=== PATIENT | female | born 1975 | race Caucasian/White ===

== ENCOUNTER 2016-03-01 19:56 | Emergency (ER) | payer SELFPAY ==
[~2016-03-01 19:56] MED LIST: IBUP800T23 PO; MELA3TAB14
[2016-03-01 19:59] VITALS: BP 134/63; PULSE 95; RESP 14; TEMP 98; O2SAT 97
[2016-03-02] MEDS ORDERED: BACT800T5 PO (18:01)
[2016-03-02] MEDS ORDERED: IBUP-232 PO (18:01)
== END 2016-03-01 21:33 | disposition left against medical advice (07) ==
LOC: NED 19:56
DX: B99.9 Unspecified infectious disease (principal)
CPT/HCPCS: 99281

== ENCOUNTER 2016-03-02 17:09 | Emergency (ER) | payer SELFPAY ==
[~2016-03-02] VITALS: Ht 170.2 cm; Wt 75.0 kg
[2016-03-02 17:14] VITALS: BP 135/80; PULSE 128; RESP 20; TEMP 98; O2SAT 95
--- NOTE | 2016-03-02 17:17 | PD ---
HPI Chief Complaint: Skin Problem Time Seen by Provider: 17:17 Travel History International Travel<30 days: No Contact w/Intl Traveler<30days: No Traveled to known affect area: No History of Present Illness HPI 40-year-old female coming in with right hand cellulitis and abscess. Patient states she was opening her dog food can 4 days ago, she received a small cut in the third dorsal webspace, with subsequent erythema and swelling in the dorsal hand over the fourth and fifth metacarpal region. She does have a history of IV drug use in the past, but states that was not the cause of this problem. Patient has been clean for over a week. She had one relapse one week ago but prior to that she been clean for over a year. Patient takes no fever, chills, has increased pain swelling and decreased ability to make a fist in the right hand. There is been no drainage. Patient has no previous history of MRSA. She is allergic to Prozac but no other medication no allergies. Patient states her tetanus is up-to-date. PFSH Past Medical History Arthritis: No Asthma: No Autoimmune Disease: No Blood Disorders: No Anxiety: Yes Depression: No Heart Rhythm Problems: No Cancer: No Cardiovascular Problems: Yes (hx endocarditis) High Cholesterol: No Chemotherapy: No Chest Pain: No Congestive Heart Failure: No COPD: No Cerebrovascular Accident: No Diabetes: No Diminished Hearing: No Endocrine: No Gastrointestinal Disorders: Yes (hep c pos) GERD: No Glaucoma: No Genitourinary: Yes (HX UTI) Headaches: No Hepatitis: Yes (HEP -C-) Hiatal Hernia: No Hypertension: No Immune Disorder: No Kidney Stones: No Musculoskeletal: No Neurologic: Yes (epidural abcess) Psychiatric: Yes Reproductive: No Respiratory: No Migraines: No Myocardial Infarction: No Radiation Therapy: No Renal Failure: No Seizures: No Sleep Apnea: No Thyroid Disease: No Ulcer: No Tetanus Vaccination: < 5 Years ?: Not : 2 Para: 1 Miscarriage: 1 Past Surgical History Abdominal Surgery: Yes (spenic rupture with surg intervention age 13) AICD: No Arteriovenous Shunt: No Cardiac Surgery: No Ear Surgery: No Endocrine Surgery: No Eye Surgery: No Genitourinary Surgery: No Gynecologic Surgery: No Insulin Pump: No Joint Replacement: No Neurologic Surgery: No Oral Surgery: No Pacemaker: No Thoracic Surgery: No Other Surgery: Yes Social History Alcohol Use: No Tobacco Use: Yes Substance Use: Yes (iv dilaudid use) Allergies-Medications (Allergen,Severity, Reaction): Coded Allergies: Prozac (Verified Allergy, Mild, HIVES, 03/02/16) OTC RESOLVED Reported Meds & Prescriptions Reported Meds & Active Scripts Active No Active Prescriptions or Reported Medications Review of Systems Except as stated in HPI: all other systems reviewed are Neg General / Constitutional: No: Fever, Chills Eyes: No: Visual changes HENT: No: Headaches Cardiovascular: No: Chest Pain or Discomfort Respiratory: No: Shortness of Breath Gastrointestinal: No: Abdominal Pain Genitourinary: No: Dysuria Musculoskeletal: No: Pain Skin: Positive Other (see history present illness.), No Rash Neurologic: No: Weakness Psychiatric: No: Depression Endocrine: No: Polydipsia Hematologic/Lymphatic: No: Easy Bruising Physical Exam Narrative GENERAL: Patient appears in no acute distress. SKIN: Warm and dry. Normal color. Normal turgor. Patient does have a small superficial linear laceration to the fourth webspace, with obvious abscess with erythema, induration, and warmth covering the dorsal lateral portion of the right hand without obvious pointing. There is no lymphangitis or streaking. There is no spontaneous drainage. HEAD: Atraumatic. Normocephalic. EYES: Pupils equal and round. No scleral icterus. No injection or drainage. ENT: No nasal bleeding or discharge. Mucous membranes pink and moist. NECK: Trachea midline. No JVD. CARDIOVASCULAR: Regular rate and rhythm. RESPIRATORY: No accessory muscle use. Clear to auscultation. Breath sounds equal bilaterally. MUSCULOSKELETAL: Extremities without clubbing, cyanosis, or edema. No obvious deformities. Range of motion of the right hand is somewhat limited secondary to the pain and swelling from the above abscess. NEUROLOGICAL: Awake and alert. No obvious cranial nerve deficits. Motor grossly within normal limits. Five out of 5 muscle strength in the arms and legs. Normal speech. PSYCHIATRIC: Appropriate mood and affect; insight and judgment normal. Data Data Last Documented VS Vital Signs Date Time Temp Pulse Resp B/P Pulse Ox O2 Delivery O2 Flow Rate FiO2 03/02/16 17:26 129 16 120/76 97 Room Air 03/02/16 17:14 98.0 Orders Wound Culture And Gram Stain (03/02/16 17:30) Lidocai-Epi 1%-1:100,000 Inj (Xylocaine- (03/02/16 17:30) Clindamycin Inj (Cleocin Inj) (03/02/16 17:45) MDM Medical Decision Making Medical Screen Exam Complete: Yes Emergency Medical Condition: Yes Differential Diagnosis Cellulitis. MRSA. Abscess. Narrative Course Patient is medically stable at time of exam. Call was placed to Dr. Nicolas, the hand surgeon on-call the patient was discussed. Dr. Nicolas felt that I&D here in the emergency department was appropriate. I&D was performed here, and wound culture sent to the lab. Please see procedure note. Large bulky bandage is placed over the packing. Dressing is to remain in place until seen in follow-up. Patient is to return in 2 days for recheck and possible packing. Patient is given 600 mg clindamycin IM. Patient be discharged home on Bactrim DS twice a day 10 days. Patient also given ibuprofen 600 mg 4 times a day when necessary pain #40. Patient follow-up in 2 days for recheck or sooner if symptoms worsen as discussed. Procedures Procedure Narrative After the risks and benefits were discussed the following procedure was performed: INCISION AND DRAINAGE OF ABSCESS: The area was prepped and was sterilely draped. A subcutaneous wheal of 1 % Xylocaine with epinephrine with a total number 3 mL was used to anesthetize the area. The area was properly anesthetized. A number 11 scalpel was used to make a 1-cm incision across the area of the abscess. Cultures were obtained. The abscess was drained an irrigated with normal saline. Quarter inch iodoform packing was placed in the wound. Bulky Sterile dressing applied. Patient advised to have packing removed in two days. Diagnosis Primary Impression: Abscess of right hand excluding fingers and thumb Patient Instructions: Abscess Incision and Drainage (DC), General Instructions Additional Instructions: Large bulky bandage is placed over the packing. Dressing is to remain in place until seen in follow-up. Patient is to return in 2 days for recheck and possible packing. Patient is given 600 mg clindamycin IM. Patient be discharged home on Bactrim DS twice a day 10 days. Patient also given ibuprofen 600 mg 4 times a day when necessary pain #40. Patient follow-up in 2 days for recheck or sooner if symptoms worsen as discussed. Med/Other Pt SpecificInfo: Prescription(s) given Scripts No Active Prescriptions or Reported Meds Disposition: 01 DISCHARGE HOME Condition: Stable Hitesh Han Mar 02, 2016 17:17
[2016-03-02 17:26] VITALS: BP 120/76; PULSE 129; RESP 16; O2SAT 97
[2016-03-02] MEDS ORDERED: LIDOCAINE 1%/EPINEPHrine 1:100,000 SOLN 20 ML VIAL INFIL ONE (17:30)
[2016-03-02] MEDS ORDERED: CLINDAMYCIN PHOS 600 MG/4 ML VIAL IM ONE (17:45)
[2016-03-02] MEDS ORDERED: IBUPROFEN 800 MG TAB PO ONE (18:00)
[2016-03-02] MEDS ORDERED: IBUP-232 PO (18:01)
[2016-03-02] MEDS ORDERED: BACT800T5 PO (18:01)
== END 2016-03-02 18:30 | disposition home or self-care (01) ==
LOC: NEPC 17:09
DX: L02.511 Cutaneous abscess of right hand (principal); Z72.0 Tobacco use; Z86.79 Personal history of other diseases of the circulatory system; Z86.19 Personal history of other infectious and parasitic diseases; Z87.440 Personal history of urinary (tract) infections; Z86.69 Personal history of other diseases of the nervous system and sense organs; Z86.59 Personal history of other mental and behavioral disorders
CPT/HCPCS: 10061; 87070; 87205; 96372

== ENCOUNTER 2016-03-05 08:50 | Emergency (ER) | payer SELFPAY ==
[~2016-03-05] VITALS: Ht 170.2 cm; Wt 70.0 kg
[~2016-03-05 08:50] MED LIST changes: +BACT800T5 PO; +IBUP-232 PO; -IBUP800T23 PO; -MELA3TAB14
[2016-03-05 08:51] VITALS: BP 132/68; PULSE 82; RESP 18; TEMP 98.2; O2SAT 97
--- NOTE | 2016-03-05 10:04 | PD ---
HPI Chief Complaint: Wound/Suture/Staple Re-Check Time Seen by Provider: 10:00 Travel History International Travel<30 days: No Contact w/Intl Traveler<30days: No Traveled to known affect area: No History of Present Illness HPI Patient comes in for wound recheck on abscess on her right hand that was I&D here 2 days ago. Patient reports improvement of symptoms since. Patient denies any pain with this and reports increased range of motion of hand. Patient has been taking antibiotics as prescribed. Denies any fevers or other concerns. PFSH Past Medical History Arthritis: No Asthma: No Autoimmune Disease: No Blood Disorders: No Anxiety: Yes Depression: No Heart Rhythm Problems: No Cancer: No Cardiovascular Problems: Yes (hx endocarditis) High Cholesterol: No Chemotherapy: No Chest Pain: No Congestive Heart Failure: No COPD: No Cerebrovascular Accident: No Diabetes: No Diminished Hearing: No Endocrine: No Gastrointestinal Disorders: Yes (hep c pos) GERD: No Glaucoma: No Genitourinary: Yes (HX UTI) Headaches: No Hepatitis: Yes (HEP -C-) Hiatal Hernia: No Hypertension: No Immune Disorder: No Kidney Stones: No Musculoskeletal: No Neurologic: Yes (epidural abcess) Psychiatric: Yes Reproductive: No Respiratory: No Migraines: No Myocardial Infarction: No Radiation Therapy: No Renal Failure: No Seizures: No Sleep Apnea: No Thyroid Disease: No Ulcer: No : 2 Para: 1 Miscarriage: 1 Past Surgical History Abdominal Surgery: Yes (spLenic rupture with surg intervention age 13) AICD: No Arteriovenous Shunt: No Cardiac Surgery: No Ear Surgery: No Endocrine Surgery: No Eye Surgery: No Genitourinary Surgery: No Gynecologic Surgery: No Insulin Pump: No Joint Replacement: No Neurologic Surgery: No Oral Surgery: No Pacemaker: No Thoracic Surgery: No Other Surgery: Yes Social History Alcohol Use: No Tobacco Use: Yes (1 PPD) Substance Use: Yes (iv dilaudid use) Allergies-Medications (Allergen,Severity, Reaction): Coded Allergies: Prozac (Verified Allergy, Mild, HIVES, 03/02/16) OTC RESOLVED Reported Meds & Prescriptions Reported Meds & Active Scripts Active Ibuprofen 600 Mg Tab 600 Mg PO Q6H PRN Bactrim DS (Sulfamethoxazole-Trimethoprim) 800-160 Mg Tab 1 Tab PO BID Review of Systems Except as stated in HPI: all other systems reviewed are Neg Physical Exam Narrative GENERAL: Well-developed, well nourished, in no acute distress, and non-ill appearing. SKIN: Warm and dry. Well-healing abscess noted dorsal aspect of the right hand. Patient has full range of motion. No active drainage. There is no crepitus, is minimally tender to palpation, mild erythematous. HEAD: Atraumatic. Normocephalic. EYES: Pupils equal and round. EOMI. No scleral icterus. No injection or drainage. ENT: No nasal bleeding or discharge. Mucous membranes pink and moist. NECK: Trachea midline. Supple. No nuclear rigidity. RESPIRATORY: No accessory muscle use. No respiratory distress. MUSCULOSKELETAL: No obvious deformities. No clubbing. No cyanosis. No edema. Full range of motion. NEUROLOGICAL: Awake and alert. No obvious cranial nerve deficits. Motor grossly within normal limits. Normal speech. PSYCHIATRIC: Appropriate mood and affect; insight and judgment normal. Data Data Last Documented VS Vital Signs Date Time Temp Pulse Resp B/P Pulse Ox O2 Delivery O2 Flow Rate FiO2 03/05/16 08:51 98.2 82 18 132/68 97 Room Air Orders Wound Care (03/05/16 10:00) MDM Medical Decision Making Medical Screen Exam Complete: Yes Emergency Medical Condition: Yes Differential Diagnosis Wound recheck, abscess, worsening infection, other Narrative Course Patient in no obvious distress upon re-evaluation. Any questions/concerns in reference to patient diagnosis/condition discussed and clarified prior to patient's discharge. Reinforced sheer importance of close follow up with patient 's primary physician or primary care clinic. Instructed patient to return to ED immediately, if symptoms return/worsen. Pt showed understanding of above instructions. Further instructions and recommendations were detailed in discharge paperwork. Pt ambulated without difficulty out of ED at discharge. Diagnosis Primary Impression: Encounter for recheck of abscess following incision and drainage Patient Instructions: Abscess Follow-up (ED), Acute Wound Care (ED), General Instructions Additional Instructions: Follow-up with your primary care physician or return here 2 days for recheck. Take all medication as previously prescribed. Keep wound dry and clean as possible using soap and water. Do not soak or submerge wound. Return to the emergency department if symptoms get worse. Disposition: 01 DISCHARGE HOME Condition: Stable Quincy Arechiga Mar 05, 2016 10:04
== END 2016-03-05 10:43 | disposition home or self-care (01) ==
LOC: NEPB 08:50
DX: L02.511 Cutaneous abscess of right hand (principal)
CPT/HCPCS: 99281

== ENCOUNTER 2017-07-09 10:26 | Emergency (ER) | payer SELFPAY ==
[~2017-07-09] VITALS: Ht 170.2 cm; Wt 71.0 kg
[2017-07-09 10:32] VITALS: BP 140/88; PULSE 93; RESP 16; TEMP 98.3; O2SAT 98
[2017-07-09] MEDS ORDERED: CLINDAMYCIN PHOS 600 MG/4 ML VIAL IM ONE (10:45)
[2017-07-09] MEDS ORDERED: LIDOCAINE HCL 1% PF 30 ML VIAL INFIL ONE (10:45)
[2017-07-09] MEDS ORDERED: CLIN150C14 PO (10:47)
[2017-07-09] MEDS ORDERED: DICL75TA PO (10:47)
[2017-07-09] MEDS ORDERED: BACT800T5 PO (10:47)
--- NOTE | 2017-07-09 11:19 | PD ---
HPI Chief Complaint: Skin Problem Time Seen by Provider: 10:38 Travel History International Travel<30 days: No Contact w/Intl Traveler<30days: No Traveled to known affect area: No History of Present Illness HPI 42-year-old female that presents to the ED for evaluation of swelling and infection to the right hand. Patient has had this for 3 days. Progressively getting worse. Per patient no history of this in the past. She does have a history of IV drug abuse but denies any recently. She denies ever having this before but per medical record she has had. She states that the pain is 6 out of 10. Gets worse with touch. Has not taken anything for this. Denies any fevers chills or sweats. No recent injuries. PFSH Past Medical History Arthritis: No Asthma: No Autoimmune Disease: No Blood Disorders: No Anxiety: Yes Depression: No Heart Rhythm Problems: No Cancer: No Cardiovascular Problems: Yes (hx endocarditis) High Cholesterol: No Chemotherapy: No Chest Pain: No Congestive Heart Failure: No COPD: No Cerebrovascular Accident: No Diabetes: No Diminished Hearing: No Endocrine: No Gastrointestinal Disorders: Yes (hep c pos) GERD: No Glaucoma: No Genitourinary: Yes (HX UTI) Headaches: No Hepatitis: Yes (HEP -C-) Hiatal Hernia: No Hypertension: No Immune Disorder: No Kidney Stones: No Musculoskeletal: No Neurologic: Yes (epidural abcess) Psychiatric: Yes Reproductive: No Respiratory: No Immunizations Current: Yes Migraines: No Myocardial Infarction: No Radiation Therapy: No Renal Failure: No Seizures: No Sleep Apnea: No Thyroid Disease: No Ulcer: No Tetanus Vaccination: < 5 Years Influenza Vaccination: No ?: Not LMP: 3 WEEKS : 2 Para: 1 Miscarriage: 1 Past Surgical History Abdominal Surgery: Yes (spLenic rupture with surg intervention age 13) AICD: No Arteriovenous Shunt: No Cardiac Surgery: No Ear Surgery: No Endocrine Surgery: No Eye Surgery: No Genitourinary Surgery: No Gynecologic Surgery: No Insulin Pump: No Joint Replacement: No Neurologic Surgery: No Oral Surgery: No Pacemaker: No Thoracic Surgery: No Other Surgery: Yes Social History Alcohol Use: Yes (2 daily) Tobacco Use: Yes (1 PPD) Substance Use: Yes (iv dilaudid use) Allergies-Medications (Allergen,Severity, Reaction): Coded Allergies: fluoxetine (Unverified Allergy, Mild, HIVES, 07/09/17) OTC RESOLVED Reported Meds & Prescriptions Reported Meds & Active Scripts Active Diclofenac Sodium DR (Diclofenac Sodium) 75 Mg Tabdr 75 Mg PO BID PRN Clindamycin (Clindamycin HCl) 150 Mg Cap 150 Mg PO Q8HR 14 Days Bactrim DS (Sulfamethoxazole-Trimethoprim) 800-160 Mg Tab 1 Tab PO BID 14 Days Review of Systems Except as stated in HPI: all other systems reviewed are Neg Physical Exam Narrative GENERAL: SKIN: Warm and dry. Patient has an area of purulence which is about 2 cm in diameter in the dorsal aspect of the hand between the second and third metacarpals. No sign of tendon or nerve or foreign body. Erythema noted. Warm to touch. Full range of motion of all digits of the hand. 2+ pulses bilaterally. No lymphadenopathy noted. HEAD: Atraumatic. Normocephalic. EYES: Pupils equal and round. No scleral icterus. No injection or drainage. ENT: No nasal bleeding or discharge. Mucous membranes pink and moist. NECK: Trachea midline. No JVD. CARDIOVASCULAR: Regular rate and rhythm. RESPIRATORY: No accessory muscle use. Clear to auscultation. Breath sounds equal bilaterally. GASTROINTESTINAL: Abdomen soft, non-tender, nondistended. Hepatic and splenic margins not palpable. MUSCULOSKELETAL: Extremities without clubbing, cyanosis, or edema. No obvious deformities. NEUROLOGICAL: Awake and alert. No obvious cranial nerve deficits. Motor grossly within normal limits. Five out of 5 muscle strength in the arms and legs. Normal speech. PSYCHIATRIC: Appropriate mood and affect; insight and judgment normal. Data Data Last Documented VS Vital Signs Date Time Temp Pulse Resp B/P (MAP) Pulse Ox O2 Delivery O2 Flow Rate FiO2 07/09/17 10:32 98.3 93 16 140/88 (105) 98 Orders Orders Wound Culture And Gram Stain (07/09/17 10:44) Wound Care (07/09/17 10:44) Clindamycin Inj (Cleocin Inj) (07/09/17 10:45) Lidocaine Pf 1% Inj (Xylocaine-Mpf 1% In (07/09/17 10:45) Ed Discharge Order (07/09/17 11:14) MDM Medical Decision Making Medical Screen Exam Complete: Yes Emergency Medical Condition: Yes Medical Record Reviewed: Yes Differential Diagnosis Abscess versus cellulitis versus MRSA Narrative Course 42-year-old female that presents to the ED for evaluation of abscess. Patient was properly examined and was found to have signs and symptoms consistent appears to be abscess to the right hand. Patient was properly examined and was found to have signs and symptoms were consistent appears to be abscess. After explaining procedure to the patient and she agreed to it abscess was incised and drained stain procedure note. Ice recommended. Patient given first dose of clindamycin IM here. Given prescriptions for clindamycin and Bactrim. Diclofenac sodium for pain. Follow-up with PCP. See ED if worsening symptoms. Recheck in 48 hours for packing removal. Procedures Procedure Narrative After the risks and benefits were discussed the following procedure was performed: INCISION AND DRAINAGE OF ABSCESS: The area was prepped and was sterilely draped. A subcutaneous wheal of 1 % Xylocaine with a total number 5 mL was used to anesthetize the area. The area was properly anesthetized. A number 11 scalpel was used to make a 1 -cm incision across the area of the abscess. Cultures were obtained. The abscess was drained an irrigated with normal saline. Quarter inch iodoform packing was placed in the wound. Sterile dressing applied. Patient advised to have packing removed in two days. Diagnosis Primary Impression: Abscess Referrals: Family Practice Physician call for appointment Patient Instructions: General Instructions, Abscess (ED) Departure Forms: Tests/Procedures, Work Release Enter return to work date: July 11, 2017 Additional Instructions: Take medications as prescribed. Follow-up with PCP. Recheck in 48 hours for packing removal or if symptoms do not improve at all. Ice or warm compresses as needed. See ED if worsening symptoms. Med/Other Pt SpecificInfo: Prescription(s) given, Wound Care Scripts Diclofenac Sodium DR (Diclofenac Sodium DR) 75 Mg Tabdr 75 MG PO BID Y for PAIN SCALE 1 TO 10, #20 TAB 0 Refills Prov: Ayden Cast MD 07/09/17 Clindamycin (Clindamycin) 150 Mg Cap 150 MG PO Q8HR for Infection for 14 Days, CAP 0 Refills Prov: Ayden Cast MD 07/09/17 Sulfamethoxazole-Trimethoprim (Bactrim DS) 800-160 Mg Tab 1 TAB PO BID for Infection for 14 Days, #28 TAB 0 Refills Prov: Ayden Cast MD 07/09/17 Disposition: 01 DISCHARGE HOME Condition: Stable Pradeep Jones July 09, 2017 11:19
== END 2017-07-09 11:25 | disposition home or self-care (01) ==
LOC: PHEFT 10:26
DX: L02.511 Cutaneous abscess of right hand (principal); F41.9 Anxiety disorder, unspecified; Z86.19 Personal history of other infectious and parasitic diseases
CPT/HCPCS: 10060; 87070; 87185; 87205; 96372